=== PATIENT | female | born 1950 | race Two or more races ===

== ENCOUNTER 2023-11-30 11:51 | Emergency (ER) | payer BC, MEDICAID ==
[~2023-11-30] VITALS: Ht 149.9 cm; Wt 56.4 kg
[2023-11-30 12:32] LABS: Basophils # (auto) 0 10 ^3/uL (0-0.2); Basophils % (auto) 0.6 % (0.0-2.0); Eosinophils # (auto) 0.1 10 ^3/uL (0-0.8); Eosinophils % (auto) 1.8 % (0.0-7.0); Hematocrit 44.5 % (36.0-46.0); Hemoglobin 14.8 g/dL (12.2-16.2); Lymphocytes # (auto) 1.8 10 ^3/uL (0.4-5.4); Lymphocytes % (auto) 26.2 % (10.0-50.0); Mean Corpuscular Hemoglobin 28.3 pg (28.0-32.0); Mean Corpuscular Hgb Conc. 33.3 g/dL (32.0-36.0); Monocytes # (auto) 0.4 10 ^3/uL (0-1.3); Monocytes % (auto) 6.5 % (0.0-12.0); Neutrophils # (auto) 4.5 10 ^3/uL (1.6-8.6); Neutrophils % (auto) 64.9 % (37.0-80.0); Red Blood Cells 5.24 10^6/uL (4.0-5.20); Red Cell Distribution Width 14.1 % (11.8-14.3); White Blood Cell 6.9 10^3/uL (4.4-10.8)
[2023-11-30 12:34] LABS: Chloride 106 mmol/L (98-107); Potassium 3.7 mmol/L (3.5-5.1); Sodium 140 mmol/L (136-145)
[2023-11-30 12:35] LABS: Anion Gap 7 (5-15); Calcium 9.9 mg/dL (8.5-10.1); Carbon Dioxide 27 mmol/L (20-30)
[2023-11-30 12:40] LABS: BUN/Creatinine Ratio 14.1 (10.0-20.0); Blood Urea Nitrogen 10 mg/dL (9-23); Glucose 90 mg/dL (74-106)
[2023-11-30 12:51] LABS: Urine Bacteria None Seen /hpf (None Seen)
[2023-11-30 13:01] LABS: Urine Blood Negative /uL (Negative); Urine Clarity Clear (Clear); Urine Color Colorless (Yellow); Urine Protein, UAD Negative (Negative); Urine Specific Gravity 1.006 (1.001-1.035); Urine Urobilinogen Normal (Negative); Urine WBC 1 /hpf (0 - 5)
[2023-11-30] MEDS: MECLIZINE HCL 25 MG TAB PO ONE (13:25)
[2023-11-30 19:26] VITALS: PULSE 78; RESP 78; O2SAT 97
[2023-11-30 22:09] VITALS: BP 128/65; PULSE 78; RESP 12; TEMP 98.3; O2SAT 97
== END 2023-11-30 22:30 | disposition short-term general hospital (02) ==
LOC: ER 11:51
DX: G45.9 Transient cerebral ischemic attack, unspecified (principal); G90.9 Disorder of the autonomic nervous system, unspecified; R42 Dizziness and giddiness
CPT/HCPCS: 36415; 70450; 80048; 81001; 82962; 85025; 93005; 99285; J8597